=== PATIENT | female | born 1990 | race Caucasian/White ===

== ENCOUNTER → 2018-03-02 17:25 | Outpatient (CLI) | payer OTHER, SELFPAY ==
[2018-03-02 18:12] LABS: Appearance Urine UA CLEAR; Bilirubin Urine UA NEGATIVE (NEGATIVE); Color Urine UA YELLOW; Glucose Urine UA NEGATIVE (Normal); Ketones Urine UA NEGATIVE (NEGATIVE); Leukocyte Esterase Urine UA TRACE (NEGATIVE); Nitrite Urine UA Negative (Negative); Occult Blood Urine UA 2+ (Negative); Protein Urine UA NEGATIVE (Negative); Specific Gravity Urine UA <=1.005 (1.000-1.035); Urobilinogen Urine UA 0.2 E.U./dL (0.2); pH Urine UA 5.5 (4.5-8.0)
[2018-03-02 18:13] LABS: Add Manual Diff / Slide Review NO; Basophils Percent Auto 0.4 % (0-2); Eosinophils Percent Auto 1.3 % (2-4); Hematocrit 37.4 % (36-46); Hemoglobin 12.8 g/dL (12.0-16.0); Lymphocytes Percent Auto 19.4 % (25-40); Mean Corpuscular HGB Conc 34.2 % (30-36); Mean Corpuscular Hemoglobin 31.6 PG (26-34); Mean Corpuscular Volume 92.4 fL (80-100); Monocytes Percent Auto 10.4 % (3-14); Neutrophils Absolute Auto 4900 /uL (3000-5900); Neutrophils Percent Auto 68.5 % (50-75); Platelet Count 291 X10^3/uL (150-400); Red Blood Cell Count 4.05 X10^6/uL (4.0-5.2); White Blood Cell Count 7.2 X10^3/uL (4.5-11.0)
[2018-03-02 18:28] LABS: Bacteria Urine Occasional (0-1); RBC Urine 1-5/HPF (0-5/HPF); Squamous Epithelial Cell Urine 1-5 /HPF; WBC Urine 1-5/HPF (0-5/HPF)
[2018-03-02 19:14] LABS: HIV 1 and 2 Antibody NEGATIVE (NEGATIVE); Hep C Virus Ab w/Reflex Quant NEGATIVE s/c (NEGATIVE); Hepatitis B Surface Antigen NEGATIVE s/c (NEGATIVE); Rubella Antibody IgG 6.5 IU/mL (>15)
[2018-03-04 14:41] LABS: HSV 2 IGG AB < 0.90 index (< 0.90); HSV1IGG < 0.90 index (< 0.90)
[2018-03-09 09:14] LABS: Rapid Plasma Reagin NON REACTIVE
== END ==
PROVIDERS: PCP Physician Assistant; Visit Provider Specialist
DX: Z34.01 Encounter for supervision of normal first pregnancy, first trimester (principal); Z3A.01 Less than 8 weeks gestation of pregnancy
CPT/HCPCS: 36415; 80055; 81003; 81015; 86695; 86696; 86703; 86787; 86803; 86850; 86900; 86901; 87086

== ENCOUNTER → 2018-04-27 10:36 | Outpatient (CLI) | payer OTHER, SELFPAY ==
[2018-05-01 10:20] LABS: AFP, Serum 25.6 ng/mL; Calc Gestational Age 16.4; Cigarette Smoker N; Donated Egg NOT GIVEN; Donor Egg Age NOT GIVEN; Estriol, Free 0.98 ng/mL; Inhibin A, Dimeric 163 pg/mL; Maternal Weight 180 lbs; Number of Fetuses NOT GIVEN; Previous Pregnancy Down Syndro NOT GIVEN; hCG, MoM 1.14; hCG, Serum 32.1 IU/mL
== END ==
PROVIDERS: Visit Provider Specialist
DX: Z3A.16 16 weeks gestation of pregnancy (principal)
CPT/HCPCS: 36415; 82105; 82677; 84702; 86336

== ENCOUNTER → 2018-05-18 15:20 | Outpatient (CLI) | payer OTHER, SELFPAY ==
--- NOTE | 2018-05-18 15:22 | DI.US.S_ITS ---
PROCEDURE: US OB >= 14 WEEKS FETUS INDICATIONS: anatomy survey OUTSIDE/PRIOR DATING DATA: Last menstrual period (LMP): 01/02/18. LMP-based estimated date of delivery (IVETH): 10/09/18. First dating scan (date and location): 05/18/18. Estimated date of delivery (IVETH) from first dating scan: 10/05/18. TECHNIQUE: Real-time scanning was performed of the fetus, with image documentation and biometric measurements. Endovaginal scanning: No COMPARISON: [facility], , OB >= 14 WEEKS FETUS, 04/27/2018, 10:31. FINDINGS: General: A single living intrauterine gestation is present. Presentation: Breech. Placenta: Placental position is anterior, without previa. Amniotic fluid index: 12.8 cm, normal range is 5-24 cm. heart rate: 144 beats per minute. Maternal cervical canal: 3.0 cm long. Normal lower limit is 2.5 cm. biometrics: Biparietal diameter: 20 weeks 2 days Head circumference: 19 weeks 6 days Abdominal circumference: 19 weeks 6 days Femur length: 20 weeks 1 day Estimated gestational age from initial scan: not applicable. Composite gestational age from present scan: 20 weeks Estimated weight and percentile: 325 g; 78 percentile Measurement variability for biometric dating: +/- 7 days from 14 weeks to 15 weeks 6 days gestation, +/- 10 days from 16 weeks to 21 weeks 6 days gestation, +/- 2 weeks from 22 weeks to 27 weeks 6 days gestation, +/- 3 weeks for 28 weeks gestation or later. weight reference: 4500 g or EFW >90/95% is considered macrosomia or large for gestational age. EFW <10% is small for gestational age. EFW 5% or less is considered intra-uterine growth restriction. Anatomic survey: Neuro: Ventricles are non-dilated at less than 10 mm. Cisterna magna is normal at 3-11 mm. Cerebellum is normal in size and morphology. Nuchal skin fold: Normal at less than 6 mm between 14-21 weeks gestational age. Face: Nose and lips normal. Facial profile not well-seen.. Spine: No evidence for spina bifida. Heart: 4-chambered heart is present, with normal ventricular outflow tracts. Left ventricular intracardiac focus. Diaphragm: Diaphragm is intact. Stomach: Left-sided stomach is present. Kidneys: No hydronephrosis. Normal is less than 5 mm in 2nd trimester, less than 7 mm in 3rd trimester. Cord: 3-vessel cord has orthotopic insertion. Bladder: Normal in size. Extremities: All 4 extremities identified. IMPRESSION: 1. Single living IUP with composite gestational age of 20 weeks 0 days. 2. Echogenic intracardiac focus: 1.4-1.8 fold likelihood of Down syndrome. If isolated finding, consider aneuploidy screening with cell-free DNA. If aneuploidy screen is negative, no further evaluation needed. 3. Facial profile not well seen otherwise normal anatomy. Dictated by: Sam MUNIZ Interpreted: Bryce Peralta MD on 05/18/2018 at 17:13 Approved by: Bryce Peralta M.D. on 05/18/2018 at 17:55
== END ==
PROVIDERS: Visit Provider Specialist
DX: Z34.02 Encounter for supervision of normal first pregnancy, second trimester (principal); Z3A.20 20 weeks gestation of pregnancy
CPT/HCPCS: 76811

== ENCOUNTER → 2018-07-06 12:41 | Outpatient (CLI) | payer OTHER, SELFPAY ==
[2018-07-06 14:52] LABS: Hemoglobin 11.2 g/dL (12.0-16.0)
[2018-07-06 15:01] LABS: GTT (PREG) 1 Hour PP 50gm Dose 118 mg/dL (76-139)
== END ==
PROVIDERS: Visit Provider Specialist
DX: Z34.02 Encounter for supervision of normal first pregnancy, second trimester (principal); Z3A.25 25 weeks gestation of pregnancy
CPT/HCPCS: 36415; 82950; 85014; 85018

== ENCOUNTER → 2018-08-13 12:52 | Outpatient (CLI) | payer OTHER, SELFPAY ==
[2018-08-13 13:46] LABS: Add Manual Diff / Slide Review NO; Basophils Absolute Auto 0 /uL (0-100); Basophils Percent Auto 0.1 % (0-2); Eosinophils Absolute Auto 100 /uL (0-450); Eosinophils Percent Auto 0.6 % (2-4); Hematocrit 33.3 % (36-46); Hemoglobin 11.4 g/dL (12.0-16.0); Lymphocytes Absolute Auto 1000 /uL (1100-4500); Lymphocytes Percent Auto 11.9 % (25-40); Mean Corpuscular HGB Conc 34.3 % (30-36); Mean Corpuscular Volume 93.4 fL (80-100); Monocytes Absolute Auto 700 /uL (0-900); Monocytes Percent Auto 8.1 % (3-14); Neutrophils Absolute Auto 6800 /uL (1500-7000); Neutrophils Percent Auto 79.3 % (50-75); Platelet Count 247 X10^3/uL (150-400); Red Blood Cell Count 3.56 X10^6/uL (4.0-5.2); Red Cell Distribution Width 13.4 % (11.6-14.8); White Blood Cell Count 8.6 X10^3/uL (4.5-11.0)
[2018-08-13 16:36] LABS: Alanine Aminotransferase 26 IU/L (9-52); Albumin 3.4 g/dL (3.5-5.0); Albumin Globulin Ratio 1.1 (1.0-2.8); Alkaline Phosphatase 90 U/L (38-126); Aspartate Aminotransferase 18 IU/L (14-36); Bilirubin Total 0.2 mg/dL (0.2-1.3); Bilirubin Unconjugated 0.1 mg/dL (0.0-1.1); HEMOLYSIS < 15 (0-50); Total Protein 6.4 g/dL (6.3-8.2); Uric Acid 3.7 mg/dL (2.5-6.2)
== END ==
PROVIDERS: Visit Provider Specialist
DX: O16.3 Unspecified maternal hypertension, third trimester (principal)
CPT/HCPCS: 36415; 80076; 84550; 85025

== ENCOUNTER → 2018-09-11 14:53 | Outpatient (CLI) | payer OTHER, SELFPAY ==
[2018-09-12 14:47] LABS: Strep Grp B PCR NEG for Grp B Strep
== END ==
PROVIDERS: Visit Provider Specialist
DX: Z34.03 Encounter for supervision of normal first pregnancy, third trimester (principal); Z3A.36 36 weeks gestation of pregnancy
CPT/HCPCS: 87653

== ENCOUNTER 2018-09-26 11:31 | Outpatient (CLI) | payer OTHER, SELFPAY ==
--- NOTE | 2018-09-26 12:48 | PM.OBTRLD ---
Visit Information Visit Information Date of evaluation: 09/26/18 Primary OB Provider: Flory Elias On-call OB Provider: Katina Salvador Reason for Evaluation: Yes non-stress test non-stress test reason: hypertension/pre-eclampsia Comments/Additional reasons for admission: Scheduled NST for chronic hypertension. Patient denies symptoms of pre-eclampsia per nursing. [facility] Medical History Hypertension (Chronic) Surgical History No history of previous surgery (Resolved) Family History (Updated 04/22/17 @ 00:00 by Conversion Provider) Father Age: 64 Hypertension Sister Age: 35 Hypertension Mother No problems noted. Sister No problems noted. Family History Father Age: 64 Hypertension Sister Age: 35 Hypertension Mother No problems noted. Sister No problems noted. Exam Vital Signs (past 8 hours): 164/110 143/100 127/78 Evaluation Evaluation Baseline heart rate: 140 Variability: Moderate (11-25) monitor accelerations: Present monitor decelerations: Absent Category of Tracing: I Diagnosis, Plan/Disposition Final Diagnosis (1) Gestational hypertension: Current Visit: Yes Status: Deleted (2) 38 weeks gestation of : Current Visit: Yes Status: Acute (3) Chronic hypertension affecting : Current Visit: Yes Status: Acute Plan/Disposition Plan: Scheduled NST for chronic hypertension. No symptoms of pre-eclampsia. Initial blood pressure elevated however rechecks improved. Continue metoprolol and follow up in clinic as scheduled.
== END 2018-09-26 12:55 | disposition home or self-care (01) ==
LOC: LABOR 13:06 → OB 09-29 06:54
PROVIDERS: Visit Provider Specialist
DX: O13.9 Gestational [pregnancy-induced] hypertension without significant proteinuria, unspecified trimester (principal); O10.919 Unspecified pre-existing hypertension complicating pregnancy, unspecified trimester; Z3A.38 38 weeks gestation of pregnancy
CPT/HCPCS: 59025; G0378; G0379

== ENCOUNTER 2018-10-01 10:37 | Outpatient (CLI) | payer OTHER, SELFPAY ==
--- NOTE | 2018-10-01 12:34 | PM.OBTRLD ---
Visit Information Visit Information Date of evaluation: 10/01/18 Primary OB Provider: Flory Elias Reason for Evaluation: Yes non-stress test non-stress test reason: hypertension/pre-eclampsia Vital Signs Vital Signs: Blood pressure 138/98, repeat 124/80 on her left side Evaluation Evaluation Baseline heart rate: 150 Variability: Moderate (11-25) monitor accelerations: Present monitor decelerations: Absent Contraction Frequency (minutes): 0 Diagnosis, Plan/Disposition Final Diagnosis (1) Chronic hypertension affecting : Current Visit: No Status: Acute (2) 38 weeks gestation of : Current Visit: No Status: Acute Plan/Disposition Plan: Patient is to call if she has any signs or symptoms of preeclampsia. She is a follow-up appointment in 5 days. OB Disposition: home
== END 2018-10-01 11:32 | disposition home or self-care (01) ==
LOC: LABOR 10:50 → OB 10-02 13:04
PROVIDERS: Visit Provider Specialist
DX: O10.919 Unspecified pre-existing hypertension complicating pregnancy, unspecified trimester (principal); Z3A.38 38 weeks gestation of pregnancy
CPT/HCPCS: 59025; 59050; G0378; G0379

== ENCOUNTER 2018-10-08 08:52 | Outpatient (CLI) | payer OTHER, SELFPAY ==
--- NOTE | 2018-10-08 09:38 | PM.OBTRLD ---
Visit Information Visit Information Date of evaluation: 10/08/18 Primary OB Provider: Flory Elias Reason for Evaluation: Yes non-stress test non-stress test reason: hypertension/pre-eclampsia Vital Signs Vital Signs: Initial blood pressure 133/102 but came down quickly to 127/73. Evaluation Evaluation Baseline heart rate: 130 Variability: Moderate (11-25) monitor accelerations: Present monitor decelerations: Absent Contraction Frequency (minutes): 0 Category of Tracing: I Cervical dilation (cm): 1 Cervical effacement (%): 80 station: -1 Diagnosis, Plan/Disposition Final Diagnosis (1) Chronic hypertension affecting : Current Visit: No Status: Acute (2) 39 weeks gestation of : Current Visit: Yes Status: Acute Plan/Disposition Plan: Reactive nonstress test. Patient has a follow-up appointment and 5 days. Routine precautions reviewed with the patient. NORA was over 8, good movement tone and breathing seen in the office on ultrasound OB Disposition: home
== END 2018-10-08 09:50 | disposition home or self-care (01) ==
LOC: LABOR 09:20 → OB 10-09 10:44
PROVIDERS: Visit Provider Specialist
DX: O10.919 Unspecified pre-existing hypertension complicating pregnancy, unspecified trimester (principal); Z3A.39 39 weeks gestation of pregnancy
CPT/HCPCS: 59025; G0378; G0379

== ENCOUNTER 2018-10-10 06:03 | Inpatient (IN) | payer OTHER, SELFPAY ==
--- NOTE | 2018-10-10 06:07 | PM.OBHP.1 ---
OB HPI Date/Time Date of admission: 10/10/18 Date Patient Seen: 10/10/18 Time Patient Seen: 06:07 History of Present Condition Chief complaint: evaluation of labor : 2 Para: 0 Estimated Date of Delivery: 10/09/18 Estimated Gestational Age (weeks): 40 Narrative: Yeimy Walsh is a 28 year old female admitted in active labor History of Present care: good care, initiated at week # (9), number of visits (14) and pounds weight gain (43) Dating criteria: LMP confirmed by 1st trimester US Ultrasounds: abnormal US findings (intracardiac focus) Abnormal ultrasound findings: Intracardiac focus seen at the [facility] normal cell free DNA Obstetrical complications: none Medical complications: cardiovascular (chronic hypertension) Preadmission Labs Blood type: O (+) positive -: Antibody screen: negative, GBS status: negative, HBsAG: negative, HIV: negative, HSV 1: negative, HSV 2: negative and RPR/VDLR: negative -: Chlamydia screen: not detected and Gonorrhea screen: not detected -: Rubella: not immune and Varicella: immune HCAB: negative PAP: Normal Cell-free DNA: normal 1 hr GTT: 118 Evaluation Evaluation Baseline heart rate: 130 Variability: Moderate (11-25) monitor accelerations: Present monitor decelerations: Absent Contraction Frequency (minutes): 5 Uterine Contraction Intensity: Strong/Firm Category of Tracing: I Cervical dilation (cm): 5 Cervical effacement (%): 100 station: 0 [facility] Home Medications Medication Instructions Recorded Confirmed Type breast pump #1 each 08/07/18 08/07/18 Rx metoprolol succinate ER 50 mg 50 mg PO QDAY #30 tab 09/08/18 Rx tablet,extended release 24 hr Allergies Allergy/AdvReac Type Severity Reaction Status Date / Time No Known Drug Allergies Allergy Verified 09/26/18 13:21 Review of Systems Review of Systems Patient denies rupture membranes. No headache or scotomata. Good movement. All systems reviewed & are unremarkable except as noted in HPI and below Exam Vital Signs (past 8 hours): Initial blood pressure 150/113 repeat 124/78 pulse 101 Narrative Exam Narrative: HEENT exam within normal limits. Lungs are clear to auscultation and percussion. Heart is regular rate and rhythm no S3-S4 or murmurs. Abdomen is gravid. Extremities with out edema nontender. Assessment and Plan Assessment and Plan Assessment and Plan narrative: 40 week gestation in active labor. Patient with chronic hypertension no signs or symptoms of preeclampsia
[2018-10-10 07:54] LABS: Alanine Aminotransferase 22 IU/L (9-52); Albumin 3.1 g/dL (3.5-5.0); Alkaline Phosphatase 186 U/L (38-126); Aspartate Aminotransferase 20 IU/L (14-36); BUN Creatinine Ratio 12.9 (6-22); Bilirubin Total 0.2 mg/dL (0.2-1.3); Blood Urea Nitrogen 9 mg/dL (7-17); Calcium 8.3 mg/dL (8.4-10.2); Carbon Dioxide 21 mmol/L (22-32); Chloride 107 mmol/L (98-107); Estimated Glomerular Filt Rate > 60.0 mL/min (>60); Glucose 85 mg/dL (70-100); HEMOLYSIS < 15 (0-50); Potassium 4.1 mmol/L (3.4-5.1); Sodium 135 mmol/L (137-145); Total Protein 6.1 g/dL (6.3-8.2)
[2018-10-10 08:16] LABS: Add Manual Diff / Slide Review NO; Basophils Absolute Auto 100 /uL (0-100); Basophils Percent Auto 0.7 % (0-2); Eosinophils Absolute Auto 100 /uL (0-450); Eosinophils Percent Auto 1.3 % (2-4); Hematocrit 38.3 % (36-46); Hemoglobin 12.9 g/dL (12.0-16.0); Lymphocytes Absolute Auto 1000 /uL (1100-4500); Lymphocytes Percent Auto 10.4 % (25-40); Mean Corpuscular HGB Conc 33.8 % (30-36); Mean Corpuscular Hemoglobin 31.6 PG (26-34); Mean Corpuscular Volume 93.5 fL (80-100); Monocytes Absolute Auto 600 /uL (0-900); Monocytes Percent Auto 6.3 % (3-14); Neutrophils Absolute Auto 7900 /uL (1500-7000); Neutrophils Percent Auto 81.3 % (50-75); Platelet Count 239 X10^3/uL (150-400); Red Blood Cell Count 4.09 X10^6/uL (4.0-5.2); Red Cell Distribution Width 13.8 % (11.6-14.8); White Blood Cell Count 9.7 X10^3/uL (4.5-11.0)
[2018-10-10] MEDS: OXYTOCIN PREMIX 30 UNIT/500 ML PLAST..BAG IV (11:29)
--- NOTE | 2018-10-10 16:08 | PM.OBPRVD ---
Events: Induced HTN (chronic hypertension) and Meconium Stained Fluid (thin) Delivery date: 10/10/18 Intrapartal events: None Cervical ripening method: none Induction method: none Delivery augmentation: pitocin Delivery monitor: external FHT and external uterine Route of delivery: forceps (outlet) Indication for instrumentation: maternal exhaustion L&D Laceration Description: Periurethral - 1st Degree and Vaginal - 1st Degree Delivery repair: chromic (4-0, 3-0) Estimated blood loss (mL): 250 Anesthesia type: Epidural Narrative: Patient arrived on Labor and delivery in active labor. She received an epidural catheter for pain control. After becoming complete her contractions decreased so she had Pitocin augmentation begun. After close to 3 hours of pushing patient was fatigued and the maternal temperature had increased to 100.4 with some decreased variability, beginnings of late decelerations, and gradual increasing baseline so decision was made to assist delivery with outlet forceps. The Lauf forceps were placed and with 1 contraction the infant's head was delivered. The baby had a non reducible nuchal cord. After delivery of the the cord was released and the placed on maternal abdomen. The decision was then made to place the on the warmer so the cord was clamped, cut, and cord bloods obtained. The infant responded quickly to transfer to the warmer and was returned to maternal abdomen. the placenta delivered spontaneously, intact, with 3 vessels. Patient had no cervical or perineal tears. A right labia minora tear was repaired with 4-0 chromic suture. A first-degree posterior midline vaginal tear was repaired with 3-0 chromic suture. Due to some increased bleeding the patient received IM Pitocin as well as IV Pitocin. Both infant and mother doing well. [place] Baby 1: gender: Female Presentation: vertex position: Left Occiput Transverse Placenta delivery description: Spontaneous cord vessel description: Nuchal Cord score (1 min): 8 score (5 min): 9 Plan for aftercare: Routine post vaginal delivery
[2018-10-10] MEDS: IBUPROFEN 600 MG TABLET PO (18:30)
[2018-10-10 18:36] VITALS: BP 138/88
[2018-10-11 05:34] LABS: Add Manual Diff / Slide Review NO; Basophils Absolute Auto 0 /uL (0-100); Basophils Percent Auto 0.1 % (0-2); Eosinophils Absolute Auto 100 /uL (0-450); Eosinophils Percent Auto 0.9 % (2-4); Hematocrit 33.3 % (36-46); Lymphocytes Absolute Auto 1200 /uL (1100-4500); Lymphocytes Percent Auto 8.7 % (25-40); Mean Corpuscular Hemoglobin 30.9 PG (26-34); Mean Corpuscular Volume 93.8 fL (80-100); Monocytes Absolute Auto 1000 /uL (0-900); Monocytes Percent Auto 7.4 % (3-14); Neutrophils Absolute Auto 11300 /uL (1500-7000); Neutrophils Percent Auto 82.9 % (50-75); Platelet Count 170 X10^3/uL (150-400); Red Blood Cell Count 3.55 X10^6/uL (4.0-5.2); Red Cell Distribution Width 13.9 % (11.6-14.8); White Blood Cell Count 13.6 X10^3/uL (4.5-11.0)
[2018-10-11] MEDS: IBUPROFEN 600 MG TABLET PO (09:13)
[2018-10-11] MEDS: DOCUSATE 250 MG CAPSULE PO (09:13)
--- NOTE | 2018-10-11 12:40 | PM.OBDS.1 ---
Discharge Providers Date of admission: 10/10/18 06:03 Discharge Date: 10/11/18 Consults: 10/10/18 08:07 Consult to Anesthesiology Urgent Comment: Consulting Provider: Anesthesiologist Reason for consultation: epidural Has provider been notified: No 10/10/18 18:34 Consult to Exercise Physiology Professor Routine Comment: Discharge provider: Flory Elias MD Summary Date Patient Seen: 10/11/18 Time Patient Seen: 12:41 Procedures: Epidural catheter, forceps assisted vaginal delivery Hospital Course: Patient arrived on Labor and delivery in active labor. She received an epidural catheter for pain control. She had a forceps assisted vaginal delivery with repair of a first-degree vaginal tear. She Is breast-feeding without difficulty. She is urinating and ambulating well. She denies any signs or symptoms of preeclampsia. She continues to have labile blood pressure. Peripartum Data Infant Delivery Method: Assisted Delivery (Forceps assisted vaginal delivery) Laceration description: Vaginal - 1st Degree Procedures: Epidural catheter, forceps assisted vaginal delivery, repair of first-degree vaginal laceration complications: none [place] 1: Gender: Female Disposition of : home Discharge Diagnosis (1) Chronic hypertension affecting : Status: Acute (2) Vaginal delivery: Status: Acute Time Spent with Patient Total time spent providing and/or coordinating discharge services: Objective Labs Result Diagrams: 10/11/18 05:00 10/10/18 07:35 Labs: Laboratory Results - last 24 hr 10/11/18 05:00 WBC 13.6 H RBC 3.55 L Hgb 11.0 L Hct 33.3 L MCV 93.8 MCH 30.9 MCHC 33.0 RDW 13.9 Plt Count 170 Neut % (Auto) 82.9 H Lymph % (Auto) 8.7 L Hunt % (Auto) 7.4 Eos % (Auto) 0.9 L Baso % (Auto) 0.1 Neut # (Auto) 56029 H Lymph # (Auto) 1200 Hunt # (Auto) 1000 H Eos # (Auto) 100 Baso # (Auto) 0 Exam Vital Signs (past 8 hours): Blood pressure 140/97, pulse of 89, temperature 97.7? Narrative Exam Narrative: Abdomen is soft, nontender. Uterus is firm, U -1, nontender. Mild lochia. Extremities with trace edema and nontender. Normal DTRs. Patient's blood type is O positive and she is rubella nonimmune so she will receive a rubella vaccine prior to discharge. Discharge Plan Discharge Plan Patient Disposition: Home Discharge Med Rec/Prescriptions Prescriptions: New ibuprofen 600 mg Tablet 600 mg PO Q6HR PRN (Reason: Pain, Mild (1-3)) Qty: 30 RF: 0 docusate sodium 250 mg Capsule 250 mg PO DAILY Qty: 30 RF: 0 labetalol 100 mg tablet 100 mg PO BID Qty: 60 RF: 0 Continued breast pump [Pump In Style Advanced] device .ROUTE .MEDSUPPLY Qty: 1 RF: 0 Discontinued metoprolol succinate [Toprol XL] 50 mg tablet extended release 24 hr 50 mg PO QDAY Qty: 30 RF: 3 Follow up/Referrals: Flory Elias MD [Physician] - 1 Month (BP check in 2 days) Provider Discharge Instructions Diet: Regular Activity: Nothing in vagina for 4 weeks Skin/Wound/Dressing Care Report to your healthcare provider any signs of infection, such as:: chills, fever and increased pain Discharge Data Attending Provider: Flory Elias Admit Date/Time: 10/10/18 06:03
[2018-10-11 13:04] VITALS: BP 140/90; PULSE 72
[2018-10-11] MEDS: LABETALOL 100 MG TABLET PO (13:04)
[2018-10-11 16:57] VITALS: BP 140/90; PULSE 72; RESP 18; TEMP 36.3
[2018-10-11] MEDS: MEASLES,MUMPS,RUBELLA VACC/PF 0.5 ML VIAL SUBCUT (17:00)
== END 2018-10-11 17:35 | disposition home or self-care (01) | DRG 806 ==
PROVIDERS: Admitting Provider Specialist; Visit Provider Specialist
DX: O16.4 Unspecified maternal hypertension, complicating childbirth (principal); O75.2 Pyrexia during labor, not elsewhere classified; Z37.0 Single live birth; Z3A.40 40 weeks gestation of pregnancy; O71.82 Other specified trauma to perineum and vulva
CPT/HCPCS: 01967; 36415; 59050; 59400; 80053; 85025; 86850; 86900; 86901; G0379; J2590; J3010

== ENCOUNTER → 2019-12-16 07:01 | Outpatient (CLI) | payer OTHER, SELFPAY ==
[2019-12-16 08:30] LABS: Add Manual Diff / Slide Review NO; Basophils Absolute Auto 0 /uL (0-100); Basophils Percent Auto 0.6 % (0-2); Eosinophils Absolute Auto 100 /uL (0-450); Eosinophils Percent Auto 2.2 % (2-4); Hemoglobin 12.3 g/dL (12.0-16.0); Lymphocytes Absolute Auto 1000 /uL (1100-4500); Lymphocytes Percent Auto 20.8 % (25-40); Mean Corpuscular Hemoglobin 30.8 PG (26-34); Mean Corpuscular Volume 90.6 fL (80-100); Monocytes Absolute Auto 500 /uL (0-900); Monocytes Percent Auto 10.1 % (3-14); Neutrophils Absolute Auto 3200 /uL (1500-7000); Neutrophils Percent Auto 66.3 % (50-75); Platelet Count 270 X10^3/uL (150-400); Red Blood Cell Count 3.98 X10^6/uL (4.0-5.2); White Blood Cell Count 4.8 X10^3/uL (4.5-11.0)
[2019-12-16 09:21] LABS: Alanine Aminotransferase 17 IU/L (<35); Albumin 4.1 g/dL (3.5-5.0); Albumin Globulin Ratio 1.5 (1.0-2.8); Alkaline Phosphatase 72 U/L (38-126); Aspartate Aminotransferase 24 IU/L (14-36); BUN Creatinine Ratio 17.9 (6-22); Bilirubin Total 0.7 mg/dL (0.2-1.3); Blood Urea Nitrogen 15 mg/dL (7-17); Calcium 9.1 mg/dL (8.4-10.2); Carbon Dioxide 25 mmol/L (22-32); Chloride 104 mmol/L (98-107); Cholesterol 175 mg/dL (140-199); Estimated Glomerular Filt Rate > 60.0 mL/min (>60); Globulin 2.8 g/dL (1.7-4.1); Glucose 91 mg/dL (70-100); HDL Cholesterol 54 mg/dL (40-60); HEMOLYSIS < 15 (0-50); LDL Cholesterol Calculated 105 mg/dL (<100); Potassium 4.4 mmol/L (3.4-5.1); Sodium 136 mmol/L (137-145); Total Protein 6.9 g/dL (6.3-8.2); Triglycerides 78 mg/dL (35-150)
[2019-12-16 09:39] LABS: Free T4, Direct Thyroxine 1.21 ng/dL (0.78-2.19)
== END ==
PROVIDERS: PCP Nurse Practitioner; Referring Provider Nurse Practitioner; Visit Provider Nurse Practitioner
DX: Z00.00 Encounter for general adult medical examination without abnormal findings (principal); I10 Essential (primary) hypertension
CPT/HCPCS: 36415; 80053; 80061; 84439; 84443; 84481; 85025

== ENCOUNTER → 2020-12-16 08:31 | Outpatient (CLI) | payer OTHER, SELFPAY ==
[2020-12-16 09:24] LABS: Hemoglobin 12.1 g/dL (12.0-16.0); Mean Corpuscular HGB Conc 33.6 % (30-36); Mean Corpuscular Hemoglobin 30.6 PG (26-34); Mean Corpuscular Volume 91.1 fL (80-100); Platelet Count 283 X10^3/uL (150-400); Red Blood Cell Count 3.96 X10^6/uL (4.0-5.2); Red Cell Distribution Width 12.8 % (11.6-14.8); White Blood Cell Count 3.6 X10^3/uL (4.5-11.0)
[2020-12-16 09:29] LABS: Creatinine Urine Random 217.2 mg/dL
[2020-12-16 09:30] LABS: Alanine Aminotransferase 14 IU/L (<35); Albumin 4.2 g/dL (3.5-5.0); Albumin Globulin Ratio 1.4 (1.0-2.8); Alkaline Phosphatase 59 U/L (38-126); Aspartate Aminotransferase 23 IU/L (14-36); BUN Creatinine Ratio 13.4 (6-22); Bilirubin Total 0.6 mg/dL (0.2-1.3); Blood Urea Nitrogen 11 mg/dL (7-17); Calcium 8.9 mg/dL (8.4-10.2); Carbon Dioxide 26 mmol/L (22-32); Chloride 105 mmol/L (98-107); Cholesterol 187 mg/dL (140-199); Estimated Glomerular Filt Rate > 60.0 mL/min (>60); Globulin 3.1 g/dL (1.7-4.1); Glucose 101 mg/dL (70-100); HDL Cholesterol 59 mg/dL (40-60); HEMOLYSIS < 15 (0-50); LDL Cholesterol Calculated 112 mg/dL (<100); Potassium 4.4 mmol/L (3.4-5.1); Sodium 138 mmol/L (137-145); Total Protein 7.3 g/dL (6.3-8.2); Triglycerides 80 mg/dL (35-150)
[2020-12-16 09:34] LABS: Microalbumin Urine Random < 0.6 mg/dL (0-1.6)
[2020-12-16 09:46] LABS: Free T3, Triiodothyronine Free 3.19 pg/mL (2.77-5.27); Free T4, Direct Thyroxine 1.14 ng/dL (0.78-2.19)
[2020-12-16 09:59] LABS: Thyroid Stimulating Hormone 1.38 uIU/mL (0.47-4.68)
[2020-12-16 11:18] LABS: Neutrophils Absolute Manual 2340 /uL (3000-5900); RBC Morphology Normal Morphology; Total Cells Counted 100
== END ==
PROVIDERS: PCP Nurse Practitioner; Referring Provider Nurse Practitioner; Visit Provider Nurse Practitioner
DX: Z00.00 Encounter for general adult medical examination without abnormal findings (principal); I10 Essential (primary) hypertension
CPT/HCPCS: 36415; 80053; 80061; 82043; 82570; 84439; 84443; 84481; 85025

== ENCOUNTER → 2021-01-23 09:18 | Outpatient (CLI) | payer OTHER, SELFPAY ==
[2021-01-23 12:01] LABS: HCG Quantitative /Beta subunit < 2.4 mIU/mL
== END ==
PROVIDERS: PCP Nurse Practitioner; Referring Provider Nurse Practitioner; Visit Provider Nurse Practitioner
DX: N92.6 Irregular menstruation, unspecified (principal)
CPT/HCPCS: 36415; 84702

== ENCOUNTER → 2021-08-23 09:18 | Outpatient (CLI) | payer OTHER, SELFPAY ==
[2021-08-23 10:27] LABS: Add Manual Diff / Slide Review NO; Basophils Absolute Auto 0 /uL (0-100); Basophils Percent Auto 0.4 % (0-2); Eosinophils Absolute Auto 100 /uL (0-450); Eosinophils Percent Auto 1.3 % (2-4); Hematocrit 35.9 % (36-46); Hemoglobin 12.3 g/dL (12.0-16.0); Lymphocytes Absolute Auto 800 /uL (1100-4500); Lymphocytes Percent Auto 16.6 % (25-40); Mean Corpuscular HGB Conc 34.3 % (30-36); Mean Corpuscular Hemoglobin 30.7 PG (26-34); Mean Corpuscular Volume 89.3 fL (80-100); Monocytes Absolute Auto 500 /uL (0-900); Monocytes Percent Auto 9.9 % (3-14); Neutrophils Absolute Auto 3600 /uL (1500-7000); Neutrophils Percent Auto 71.8 % (50-75); Platelet Count 291 X10^3/uL (150-400); Red Blood Cell Count 4.02 X10^6/uL (4.0-5.2)
[2021-08-23 10:41] LABS: Appearance Urine UA CLEAR; Bilirubin Urine UA NEGATIVE (NEGATIVE); Color Urine UA YELLOW; Glucose Urine UA NEGATIVE (Negative); Ketones Urine UA NEGATIVE (NEGATIVE); Leukocyte Esterase Urine UA TRACE (NEGATIVE); Nitrite Urine UA NEGATIVE (Negative); Occult Blood Urine UA NEGATIVE (Negative); Protein Urine UA NEGATIVE (Negative); Urobilinogen Urine UA 0.2 E.U./dL (0.2)
[2021-08-23 10:49] LABS: pH Urine UA 7.5 (4.5-8.0)
[2021-08-23 10:58] LABS: RBC Urine None Seen (0-5/HPF); WBC Urine None Seen (0-5/HPF)
[2021-08-23 10:59] LABS: Bacteria Urine None Seen; Culture Indicated Urine Cult Not Indicated; Squamous Epithelial Cell Urine 5-10 /HPF (0-5/HPF)
[2021-08-23 16:33] LABS: HIV 1 & 2 Ab/Ag 4th Gen Combo NEGATIVE (NEGATIVE); Hep C Virus Ab w/Reflex Quant NEGATIVE s/c (NEGATIVE); Hepatitis B Surface Antigen NEGATIVE s/c (NEGATIVE); Rubella Antibody IgG 41.9 IU/mL (>15)
[2021-08-24 08:14] LABS: RPR Screen Non Reactive (Non Reactive); Varicella IgG Antibody 489 index (Immune >165)
== END ==
PROVIDERS: PCP Nurse Practitioner; Referring Provider Obstetrics & Gynecology; Visit Provider Obstetrics & Gynecology
DX: Z34.91 Encounter for supervision of normal pregnancy, unspecified, first trimester (principal)
CPT/HCPCS: 36415; 80055; 81003; 81015; 86787; 86803; 86850; 86900; 86901; 87389

== ENCOUNTER → 2021-08-29 10:56 | Outpatient (CLI) | payer OTHER, SELFPAY ==
[2021-08-29 13:04] LABS: HCG Quantitative /Beta subunit 20100 mIU/mL
== END ==
PROVIDERS: PCP Nurse Practitioner; Referring Provider Obstetrics & Gynecology; Visit Provider Obstetrics & Gynecology
DX: O20.9 Hemorrhage in early pregnancy, unspecified (principal)
CPT/HCPCS: 36415; 84702

== ENCOUNTER → 2021-10-02 10:32 | Outpatient (CLI) | payer OTHER, SELFPAY ==
[2021-10-02 11:56] LABS: Alanine Aminotransferase 13 IU/L (<35); Albumin 4.3 g/dL (3.5-5.0); Albumin Globulin Ratio 1.3 (1.0-2.8); Alkaline Phosphatase 63 U/L (38-126); Aspartate Aminotransferase 23 IU/L (14-36); BUN Creatinine Ratio 16.9 (6-22); Bilirubin Total 0.3 mg/dL (0.2-1.3); Blood Urea Nitrogen 12 mg/dL (7-17); Calcium 8.9 mg/dL (8.4-10.2); Carbon Dioxide 25 mmol/L (22-32); Chloride 104 mmol/L (98-107); Estimated Glomerular Filt Rate > 60 mL/min (>60); Globulin 3.3 g/dL (1.7-4.1); Glucose 88 mg/dL (70-100); HEMOLYSIS < 15 (0-50); Lactate Dehydrogenase 340 U/L (313-618); Sodium 137 mmol/L (137-145); Total Protein 7.6 g/dL (6.3-8.2); Uric Acid 3.3 mg/dL (2.5-6.2)
[2021-10-02 12:08] LABS: Hemoglobin A1C% w Est Avg Glu 5.1 % (4.0-6.0)
[2021-10-02 12:18] LABS: Creatinine Urine Random 39.2 mg/dL; Protein (Total) Urine Random 8 mg/dL (0-12)
== END ==
PROVIDERS: PCP Nurse Practitioner; Referring Provider Obstetrics & Gynecology; Visit Provider Obstetrics & Gynecology
DX: Z34.81 Encounter for supervision of other normal pregnancy, first trimester (principal); Z36.0 Encounter for antenatal screening for chromosomal anomalies; Z34.00 Encounter for supervision of normal first pregnancy, unspecified trimester
CPT/HCPCS: 36415; 80053; 82570; 83036; 83615; 84156; 84550

== ENCOUNTER → 2021-12-26 10:37 | Outpatient (CLI) | payer OTHER, SELFPAY ==
--- NOTE | 2021-12-26 10:39 | DI.US.S_ITS ---
PROCEDURE: US OB >= 14 WEEKS FETUS INDICATIONS: Anatomy scan OUTSIDE/PRIOR DATING DATA: Last menstrual period (LMP): Unknown LMP-based estimated date of delivery (IVETH): Unknown First dating scan (date and location): 09/07/2021 Estimated date of delivery (IVETH) from first dating scan: 04/27/2022 The calculations are made using the ultrasound IVETH of 04/27/2022 TECHNIQUE: Real-time scanning was performed of the fetus, with image documentation and biometric measurements. Endovaginal scanning: Not performed. COMPARISON: [facility], , OB <= 14 WEEKS FETUS, 09/21/2021, 16:23. [facility], , US OB >= 14 WEEKS FETUS, 10/08/2018, 8:44. FINDINGS: General: A single living intrauterine gestation is present. Presentation: Cephalic Placenta: Placental position is anterior, without previa. Amniotic fluid index: 15.3 cm, normal range is 5-24 cm. Single deepest vertical pocket is 6.7 cm. heart rate: 157 beats per minute. Maternal cervical canal: 3.1 cm long. Normal lower limit is 2.5 cm. biometrics: Biparietal diameter: 5.7 cm, 23 weeks 3 days Head circumference: 20.9 cm, 23 weeks 0 days Abdominal circumference: 18 cm, 22 weeks 6 days Femur length: 3.9 cm, 22 weeks 4 days Clinically estimated gestational age: 22 weeks 4 days Composite gestational age from present scan: 23 weeks 0 days Estimated weight and percentile: 532 grams, 53rd percentile Anatomic survey: Neuro: Ventricles are non-dilated at less than 10 mm. Cisterna magna is normal at 3-11 mm. Cerebellum is normal in size and morphology. Nuchal skin fold: Normal at less than 6 mm between 14-21 weeks gestational age. Face: Nose and lips, facial profile are normal. Spine: No evidence for spina bifida. Heart: 4-chambered heart is present, with normal ventricular outflow tracts. Diaphragm: Diaphragm is intact. Stomach: Left-sided stomach is present. Kidneys: No hydronephrosis. Normal is less than 5 mm in 2nd trimester, less than 7 mm in 3rd trimester. Cord: 3-vessel cord has orthotopic insertion. Bladder: Normal in size. Extremities: All 4 extremities identified. IMPRESSION: 1. Single live intrauterine with appropriate interval growth. 2. Estimated weight 532 grams, 53rd percentile for gestational age. 3. anatomic survey is within normal limits. We strive to produce accurate, complete, and clear reports of imaging services. To assist us in improving patient care, this report was composed using standard report templates and voice recognition software. Therefore, it may contain abnormal punctuation, insertions and/or omissions. Occasional wrong-word or sound-alike substitutions may occur. Though we review the report and make efforts to correct it, we do recommend that the report be read carefully in proper context to recognize any text inaccuracies. Dictated by: Brody Boston M.D. on 12/26/2021 at 14:05 Approved by: Brody Boston M.D. on 12/26/2021 at 14:12
== END ==
PROVIDERS: PCP Nurse Practitioner; Referring Provider Obstetrics & Gynecology; Visit Provider Obstetrics & Gynecology
DX: Z3A.23 23 weeks gestation of pregnancy; Z34.02 Encounter for supervision of normal first pregnancy, second trimester
CPT/HCPCS: 76811; 76817

== ENCOUNTER → 2022-02-05 16:00 | Outpatient (CLI) | payer OTHER, SELFPAY ==
[2022-02-05 17:55] LABS: Hemoglobin 10.5 g/dL (12.0-16.0)
[2022-02-05 18:10] LABS: GTT (PREG) 1 Hour PP 50gm Dose 173 mg/dL (76-139)
== END ==
PROVIDERS: PCP Nurse Practitioner; Referring Provider Obstetrics & Gynecology; Visit Provider Obstetrics & Gynecology
DX: Z34.82 Encounter for supervision of other normal pregnancy, second trimester (principal); Z3A.26 26 weeks gestation of pregnancy
CPT/HCPCS: 36415; 82950; 85014; 85018

== ENCOUNTER → 2022-02-14 08:41 | Outpatient (CLI) | payer OTHER, SELFPAY ==
[2022-02-14 12:42] LABS: Glucose Tol Interp,Gestational INTERPRETATION
[2022-02-14 12:50] LABS: Glucose Fasting Gestational 91 mg/dL (76-95)
[2022-02-14 12:58] LABS: Glucose 2 Hour Gest 128 mg/dL (76-155)
[2022-02-14 14:31] LABS: Glucose 3 Hour Gest 104 mg/dL (76-140)
[2022-02-14 14:32] LABS: Glucose 1 Hour Gest 158 mg/dL (76-180)
== END ==
PROVIDERS: PCP Nurse Practitioner; Referring Provider Obstetrics & Gynecology; Visit Provider Obstetrics & Gynecology
DX: O24.419 Gestational diabetes mellitus in pregnancy, unspecified control (principal); Z3A.00 Weeks of gestation of pregnancy not specified
CPT/HCPCS: 36415; 82951; 82952

== ENCOUNTER → 2022-03-05 14:23 | Outpatient (CLI) | payer OTHER, SELFPAY ==
--- NOTE | 2022-03-05 14:24 | DI.US.S_ITS ---
PROCEDURE: US OB LIMITED INDICATIONS: growth US OUTSIDE/PRIOR DATING DATA: Last menstrual period (LMP): Not available. First dating scan (date and location): 09/07/2021; referring physician. Estimated date of delivery (IVETH) from first dating scan: 04/27/2022. TECHNIQUE: Real-time scanning was performed of the fetus, with image documentation and biometric measurements. Biophysical profile was also obtained. COMPARISON: [facility], OB >= 14 WEEKS FETUS, 02/05/2022, 15:26. [facility], OB >= 14 WEEKS FETUS, 12/26/2021, 10:50. [facility] OB <= 14 WEEKS FETUS, 09/21/2021, 16:23. [facility], PELVIC COMPLETE, 09/07/2021, 14:58. [facility] PELVIC COMPLETE, 08/31/2021, 14:28. FINDINGS: General: A single living intrauterine gestation is present. Presentation: Cephalic. Placenta: Placental position is anterior , without previa. Amniotic fluid index: 13.5 cm, normal range is 5-24 cm. Single deepest vertical pocket is 6.5 cm. heart rate: 144 beats per minute. Maternal cervical canal: 4 cm cm long. Normal lower limit is 2.5 cm. biometrics: Biparietal diameter: 35 weeks 0 day Head circumference: 35 weeks 4 days Abdominal circumference: 33 weeks 3 days Femur length: 33 weeks 2 days Clinically estimated gestational age: 32 weeks 3 days Composite gestational age from present scan: 34 weeks 2 days Estimated weight and percentile: 2255 g; 79%. Measurement variability for biometric dating: +/- 7 days from 14 weeks to 15 weeks 6 days gestation, +/- 10 days from 16 weeks to 21 weeks 6 days gestation, +/- 2 weeks from 22 weeks to 27 weeks 6 days gestation, +/- 3 weeks for 28 weeks gestation or later. weight reference: 4500 g or EFW >90/95% is considered macrosomia or large for gestational age. EFW <10% is small for gestational age. EFW 5% or less is considered intra-uterine growth restriction.>> IMPRESSION: 1. A single living intrauterine gestation with interval growth within normal limits. 2. The estimated weight is at the 79th percentile. We strive to produce accurate, complete, and clear reports of imaging services. To assist us in improving patient care, this report was composed using standard report templates and voice recognition software. Therefore, it may contain abnormal punctuation, insertions and/or omissions. Occasional wrong-word or sound-alike substitutions may occur. Though we review the report and make efforts to correct it, we do recommend that the report be read carefully in proper context to recognize any text inaccuracies. Dictated by: Gurvinder Griggs M.D. on 03/05/2022 at 16:46 Approved by: Gurvinder Griggs M.D. on 03/05/2022 at 16:50
== END ==
PROVIDERS: PCP Nurse Practitioner; Referring Provider Obstetrics & Gynecology; Visit Provider Obstetrics & Gynecology
DX: O16.3 Unspecified maternal hypertension, third trimester (principal); Z3A.34 34 weeks gestation of pregnancy
CPT/HCPCS: 76815

== ENCOUNTER 2022-03-13 14:17 | Outpatient (CLI) | payer OTHER, SELFPAY ==
--- NOTE | 2022-03-13 17:48 | P.TNLD_ITS ---
Visit Information Visit Information Date of evaluation: 03/13/22 Primary OB Provider: Shona Simpson On-call OB Provider: Shona Simpson Reason for Evaluation: Yes non-stress test Comments/Additional reasons for admission: Patient presented for scheduled nonstress test for chronic hypertension. She is 33 weeks 5 days. She denies any problems. Vital Signs Vital Signs: BP normal. [facility] Medical History 38 weeks gestation of 39 weeks gestation of Breast feeding status of mother Chronic hypertension affecting Hypertension Vaginal delivery (~10/10/18) Surgical History No history of previous surgery Family History Father Age: 67 Hypertension Sister Age: 38 Hypertension Mother No problems noted. Sister No problems noted. Grandfather Hypertension Grandmother Hypertension Social History marital status: number of children: 1 household members: spouse and children lives independently: Yes caregiver/support person: No housing: house pets and animals: No education level: other current occupational exposures/hazards: No special jose angel needs: No travel history: other seatbelt use: always helmet use: Yes water heater temp set < 120 deg: Yes working smoke detector in home: Yes fire extinguisher in home: Yes carbon monox detector in home: Yes firearms in home: Yes do you feel safe at home: Yes Smoking Status: Never smoker alcohol intake: former during the past year weight has: other well-balanced diet: daily or most days daily servings fruits/ve-4 caffeine: Yes eating out: other Evaluation Evaluation Baseline heart rate: 135 Variability: Average (6-10) monitor accelerations: Present Monitor Decelerations: Absent Comments: One small contraction over 40 minutes Diagnosis, Plan/Disposition Plan/Disposition Plan: Reactive NST, reassuring testing Patient proceeded to the office for her scheduled appointment today. OB Disposition: home
== END 2022-03-13 15:05 | disposition home or self-care (01) ==
LOC: LABOR 14:30 → OB 03-14 11:05
PROVIDERS: PCP Nurse Practitioner; Referring Provider Obstetrics & Gynecology; Visit Provider Obstetrics & Gynecology
DX: O10.913 Unspecified pre-existing hypertension complicating pregnancy, third trimester (principal); Z3A.33 33 weeks gestation of pregnancy
CPT/HCPCS: 59025; G0378; G0379

== ENCOUNTER 2022-03-17 12:18 | Outpatient (CLI) | payer OTHER, SELFPAY ==
--- NOTE | 2022-03-17 16:34 | P.TNLD_ITS ---
Visit Information Visit Information Date of evaluation: 03/17/22 Primary OB Provider: Shona Simpson On-call OB Provider: Flory Elias Reason for Evaluation: Yes non-stress test non-stress test reason: hypertension/pre-eclampsia Vital Signs Vital Signs: Blood pressure 123/86, pulse 90, temperature 97.0? pulse ox 99% [facility] Medical History (Updated 03/17/22 @ 16:38 by Flory Elias MD) Breast feeding status of mother Chronic hypertension affecting Hypertension Vaginal delivery (~10/10/18) Surgical History No history of previous surgery Family History Father Age: 67 Hypertension Sister Age: 38 Hypertension Mother No problems noted. Sister No problems noted. Grandfather Hypertension Grandmother Hypertension Social History marital status: number of children: 1 household members: spouse and children lives independently: Yes caregiver/support person: No housing: house pets and animals: No education level: other current occupational exposures/hazards: No special jose angel needs: No travel history: other seatbelt use: always helmet use: Yes water heater temp set < 120 deg: Yes working smoke detector in home: Yes fire extinguisher in home: Yes carbon monox detector in home: Yes firearms in home: Yes do you feel safe at home: Yes Smoking Status: Never smoker alcohol intake: former during the past year weight has: other well-balanced diet: daily or most days daily servings fruits/ve-4 caffeine: Yes eating out: other Review of Systems Review of Systems Narrative: Patient was concerned because she felt lightheaded, shortness of breath, unusual low blood pressure readings at home. Evaluation Evaluation Baseline heart rate: 125 Variability: Moderate (11-25) monitor accelerations: Present Monitor Decelerations: Absent Contraction Frequency (minutes): 0 Category of Tracing: Reactive Status: Category l Diagnosis, Plan/Disposition Final Diagnosis (1) Hypertension complicating in third trimester: Status: Acute (2) Dizziness, nonspecific: Status: Acute (3) 34 weeks gestation of : Status: Acute Plan/Disposition Plan: Patient came in for evaluation for complaints of dizziness, and unusual blood pressures at home. Patient is on labetalol for hypertension. Blood pressure is normal here. NST reactive. O2 sats good and the patient is feeling better. Patient is to push fluids and call for any concerns. OB Disposition: home
== END 2022-03-17 13:56 | disposition home or self-care (01) ==
LOC: LABOR 13:17 → OB 03-21 11:23
PROVIDERS: PCP Nurse Practitioner; Referring Provider Specialist; Visit Provider Specialist
DX: O16.3 Unspecified maternal hypertension, third trimester (principal); O26.893 Other specified pregnancy related conditions, third trimester; R42 Dizziness and giddiness; Z3A.34 34 weeks gestation of pregnancy
CPT/HCPCS: 59025; G0378; G0379

== ENCOUNTER 2022-03-20 15:49 | Outpatient (CLI) | payer OTHER, SELFPAY | END 2022-03-20 16:30 | disposition home or self-care (01) | LOC: OB 03-25 08:52 | PROVIDERS: PCP Nurse Practitioner; Referring Provider Obstetrics & Gynecology; Visit Provider Obstetrics & Gynecology | DX: O10.913 Unspecified pre-existing hypertension complicating pregnancy, third trimester (principal); Z3A.34 34 weeks gestation of pregnancy | CPT/HCPCS: 59025; G0378; G0379 ==

== ENCOUNTER 2022-03-27 15:52 | Outpatient (CLI) | payer OTHER, SELFPAY | END 2022-03-27 16:53 | disposition home or self-care (01) | LOC: OB 04-05 16:39 | PROVIDERS: PCP Nurse Practitioner; Referring Provider Obstetrics & Gynecology; Visit Provider Obstetrics & Gynecology | DX: O10.913 Unspecified pre-existing hypertension complicating pregnancy, third trimester (principal); Z3A.35 35 weeks gestation of pregnancy | CPT/HCPCS: 59025; G0378; G0379 ==

== ENCOUNTER → 2022-04-01 12:54 | Outpatient (CLI) | payer OTHER, SELFPAY ==
[2022-04-01 16:58] LABS: Urine N gonorrhoeae NOT DETECTED
[2022-04-01 17:51] LABS: Urine Chlamydia NOT DETECTED
[2022-04-02 17:32] LABS: Strep Grp B PCR NEG for Grp B Strep
== END ==
PROVIDERS: PCP Nurse Practitioner; Visit Provider Physician Assistant Medical
DX: Z36.89 Encounter for other specified antenatal screening (principal); Z11.3 Encounter for screening for infections with a predominantly sexual mode of transmission; Z3A.36 36 weeks gestation of pregnancy
CPT/HCPCS: 87491; 87591; 87653

== ENCOUNTER 2022-04-01 13:31 | Outpatient (CLI) | payer OTHER, SELFPAY ==
--- NOTE | 2022-04-01 14:06 | PM.OBTRLD ---
Visit Information Visit Information Date of evaluation: 04/01/22 Primary OB Provider: Shona Simpson Reason for Evaluation: Yes non-stress test Comments/Additional reasons for admission: Scheduled nonstress test for chronic hypertension complicating . Patient seen in the office prior to scheduled NST and BP was normal 120/70s. Patient tracks BP at home as well. In the office she denied preeclamptic symptoms. Vital Signs Vital Signs: Initial BP 130/90-96, decreased to 130/76 [facility] Medical History (Updated 04/01/22 @ 14:09 by Shona Simpson MD) Breast feeding status of mother Chronic hypertension affecting Hypertension Vaginal delivery (~10/10/18) Surgical History No history of previous surgery Family History Father Age: 67 Hypertension Sister Age: 38 Hypertension Mother No problems noted. Sister No problems noted. Grandfather Hypertension Grandmother Hypertension Social History marital status: number of children: 1 household members: spouse and children lives independently: Yes caregiver/support person: No housing: house pets and animals: No education level: other current occupational exposures/hazards: No special jose angel needs: No travel history: other seatbelt use: always helmet use: Yes water heater temp set < 120 deg: Yes working smoke detector in home: Yes fire extinguisher in home: Yes carbon monox detector in home: Yes firearms in home: Yes do you feel safe at home: Yes Smoking Status: Never smoker alcohol intake: former during the past year weight has: other well-balanced diet: daily or most days daily servings fruits/ve-4 caffeine: Yes eating out: other Evaluation Evaluation Baseline heart rate: 120 Variability: Moderate (11-25) monitor accelerations: Present Monitor Decelerations: Absent Diagnosis, Plan/Disposition Final Diagnosis (1) Chronic hypertension affecting : Status: Acute Plan/Disposition Plan: Thirty-six week , cHTN NST reactive, reassuring. BP decreased after rest and was normal in the office. Continue with weekly NSTs. She is scheduled for induction on 04/23/2022 @ 39 weeks OB Disposition: home
== END 2022-04-01 14:06 | disposition home or self-care (01) ==
LOC: LABOR 13:57 → OB 04-05 16:45
PROVIDERS: PCP Nurse Practitioner; Referring Provider Obstetrics & Gynecology; Visit Provider Obstetrics & Gynecology
DX: O10.913 Unspecified pre-existing hypertension complicating pregnancy, third trimester (principal); Z3A.36 36 weeks gestation of pregnancy; Z36.89 Encounter for other specified antenatal screening; Z11.3 Encounter for screening for infections with a predominantly sexual mode of transmission
CPT/HCPCS: 59025; 87491; 87591; 87653; G0378; G0379

== ENCOUNTER → 2022-04-03 15:41 | Outpatient (CLI) | payer OTHER, SELFPAY ==
--- NOTE | 2022-04-03 15:41 | DI.US.S_ITS ---
PROCEDURE: US OB FOLLOW UP INDICATIONS: PIH; BPP, EFW OUTSIDE/PRIOR DATING DATA: Last menstrual period (LMP): Unknown LMP-based estimated date of delivery (IVETH): Unknown First dating scan (date and location): 09/07/2021 Estimated date of delivery (IVETH) from first dating scan: 04/27/2022 The calculations are made using the ultrasound IVETH of 12/25/2021 TECHNIQUE: Real-time scanning was performed of the fetus, with image documentation and biometric measurements. Endovaginal scanning: Upper for COMPARISON: None. FINDINGS: General: A single living intrauterine gestation is present. Presentation: Vertex Placenta: Placental position is anterior, without previa. Amniotic fluid index: 14.1 cm, normal range is 5-24 cm. Single deepest vertical pocket is 4.6 cm. heart rate: 124 beats per minute. Maternal cervical canal: Not well visualized. biometrics: Biparietal diameter: 9.2 cm, 37 weeks 1 day Head circumference: 33.3 cm, 38 weeks 0 days Abdominal circumference: 32.8 cm, 36 weeks 5 days Femur length: 7.1 cm, 36 weeks 3 days Clinically estimated gestational age: 36 weeks 4 days Composite gestational age from present scan: 37 weeks 1 day Estimated weight and percentile: 3045 g, 61st percentile for gestational age Biophysical profile: Tone: 2 Movement: 2 Respiration: 2 Largest pocket: 2 Other: Not applicable. IMPRESSION: 1. Single live intrauterine with appropriate interval growth. 2. Estimated weight is 3045 g, 61st percentile for gestational age. 3. Amniotic fluid index is normal at 14.1 cm. 4. Biophysical profile score is 8 of 8. We strive to produce accurate, complete, and clear reports of imaging services. To assist us in improving patient care, this report was composed using standard report templates and voice recognition software. Therefore, it may contain abnormal punctuation, insertions and/or omissions. Occasional wrong-word or sound-alike substitutions may occur. Though we review the report and make efforts to correct it, we do recommend that the report be read carefully in proper context to recognize any text inaccuracies. Approved by: Brody Boston M.D. on 04/03/2022 at 16:59
== END ==
PROVIDERS: PCP Nurse Practitioner; Referring Provider Physician Assistant Medical; Visit Provider Physician Assistant Medical
DX: O16.3 Unspecified maternal hypertension, third trimester (principal); Z3A.37 37 weeks gestation of pregnancy
CPT/HCPCS: 76816; 76819

== ENCOUNTER 2022-04-08 08:23 | Outpatient (CLI) | payer OTHER, SELFPAY | END 2022-04-08 09:20 | disposition home or self-care (01) | LOC: LABOR 09:12 → OB 04-09 08:01 | PROVIDERS: PCP Nurse Practitioner; Referring Provider Obstetrics & Gynecology; Visit Provider Obstetrics & Gynecology | DX: O10.913 Unspecified pre-existing hypertension complicating pregnancy, third trimester (principal); Z3A.37 37 weeks gestation of pregnancy | CPT/HCPCS: 59025; G0378; G0379 ==

== ENCOUNTER 2022-04-17 16:21 | Outpatient (CLI) | payer OTHER, SELFPAY | END 2022-04-17 17:14 | disposition home or self-care (01) | LOC: OB 04-22 07:58 | PROVIDERS: PCP Nurse Practitioner; Referring Provider Obstetrics & Gynecology; Visit Provider Obstetrics & Gynecology | DX: O47.1 False labor at or after 37 completed weeks of gestation (principal); Z3A.38 38 weeks gestation of pregnancy | CPT/HCPCS: 59025; G0378; G0379 ==

== ENCOUNTER 2022-04-18 12:44 | Inpatient (IN) | payer OTHER, SELFPAY ==
[2022-04-18 14:53] LABS: Add Manual Diff / Slide Review NO; Basophils Absolute Auto 0 /uL (0-100); Basophils Percent Auto 0.4 % (0-2); Eosinophils Absolute Auto 100 /uL (0-450); Eosinophils Percent Auto 0.9 % (2-4); Hematocrit 35.3 % (36-46); Hemoglobin 11.8 g/dL (12.0-16.0); Lymphocytes Absolute Auto 1300 /uL (1100-4500); Lymphocytes Percent Auto 13.6 % (25-40); Mean Corpuscular HGB Conc 33.5 % (30-36); Mean Corpuscular Volume 92.6 fL (80-100); Monocytes Absolute Auto 500 /uL (0-900); Monocytes Percent Auto 5.4 % (3-14); Neutrophils Absolute Auto 7400 /uL (1500-7000); Neutrophils Percent Auto 79.7 % (50-75); Platelet Count 294 X10^3/uL (150-400); Red Blood Cell Count 3.81 X10^6/uL (4.0-5.2); Red Cell Distribution Width 14.1 % (11.6-14.8); White Blood Cell Count 9.3 X10^3/uL (4.5-11.0)
[2022-04-18 15:20] LABS: COVID19 -Nasal RAPID Negative (Negative)
[2022-04-18 15:24] LABS: Alanine Aminotransferase 14 IU/L (<35); Albumin 3.8 g/dL (3.5-5.0); Alkaline Phosphatase 155 U/L (38-126); Aspartate Aminotransferase 22 IU/L (14-36); Bilirubin Total 0.3 mg/dL (0.2-1.3); Blood Urea Nitrogen 12 mg/dL (7-17); Calcium 9.2 mg/dL (8.4-10.2); Carbon Dioxide 20 mmol/L (22-32); Chloride 105 mmol/L (98-107); Estimated Glomerular Filt Rate > 60 mL/min (>60); Globulin 3.7 g/dL (1.7-4.1); Glucose 107 mg/dL (70-100); HEMOLYSIS < 15 (0-50); Potassium 3.9 mmol/L (3.4-5.1); Sodium 132 mmol/L (137-145); Total Protein 7.5 g/dL (6.3-8.2)
--- NOTE | 2022-04-18 17:00 | PM.OBHP.IH.1 ---
OB HPI Date/Time Date of admission: 04/18/22 Date Patient Seen: 04/18/22 Time Patient Seen: 01:35 History of Present Condition Chief complaint: Labor IVETH Calculator Estimated Delivery Date Method Current WG Current Estimate 04/26/22 LMP (Certain) 39w 0d Other Estimates 04/28/22 Ultrasound #1 38w 5d Estimated Gestational Age (weeks): 38 Narrative: 32 yo presents @ 38wk6d EGA with uncomfortable contractions. Contractions are occurring every few minutes and have become mildly uncomfortable. She thus presented for evaluation. Denies leakage of fluid or vaginal bleeding. Feeling good movement. complicated by chronic hypertension, controlled through her on labetalol. She had testing with nonstress test had growth ultrasounds which were normal. Induction of labor was scheduled in a few days at 39 weeks due to chronic hypertension, but appears to be in early labor now. BP mildly elevated on presentation. She is uncomfortable. Seen in clinic yesterday and BP was normal and she reports normal blood pressure at home prior to the uncomfortable contractions. Denies headache, scotomata, nausea or upper abdominal pain care: good care Dating criteria OB: LMP confirmed by 1st trimester US Ultrasounds: normal 1st trimester US and normal mid trimester US Obstetrical complications: none Medical complications OB: other (Chronic hypertension) Preadmission Labs Last OB Lab Results: Blood Type O Positive 04/18/22 14:25 Antibody Screen Negative 04/18/22 14:25 Hematocrit 35.3 % (36-46) L 04/18/22 14:25 Hemoglobin 11.8 g/dL (12.0-16.0) L 04/18/22 14:25 Hepatitis B Surface Antigen Negative s/c (NEGATIVE) 08/23/21 09:47 Hepatitis C Antibody Negative s/c (NEGATIVE) 08/23/21 09:47 Rubella Antibody 41.9 IU/mL (>15) 08/23/21 09:47 Varicella-Zoster IgG Antibody 489 index (Immune >165) 08/23/21 09:47 Glucose 1 Hour 173 mg/dL (76-139) H 02/05/22 17:28 Group B Streptococcus (PCR) Neg for grp b strep 04/01/22 12:54 Glucose Tolerance Testing: Fasting (91), 1 hr, 2 hr (128) and 3 hr -: Chlamydia screen: negative and Gonorrhea screen: negative -: PAP smear: Normal (12/2019) Genetic Screens: Cell-free DNA: Normal Prior (ies) Past Pregnancies Del. Date GA/Weeks Labor Lgth Wt Sex Route Outcome Anesthesia Place Delv Breastfeed Preg Comp Name 03/02/17 6 spontaneous 10/10/18 40 7 lb 15.3 oz Female vaginal forceps live - full term epidural IH 9 [place]ia Delivery Date: 03/02/17 Last Updated by: Emerita Sabillon R.N. No D&C required Evaluation Evaluation Baseline heart rate: 145 Variability: Moderate (11-25) monitor accelerations: Present Monitor Decelerations: Absent Contraction Frequency (minutes): 4 Uterine Contraction Intensity: Mild Category of Tracing: Reactive Status: Category l Dilation (cm): 2 Effacement (%): 80 PFSH Medical History (Updated 04/01/22 @ 14:09 by Shona Simpson MD) Breast feeding status of mother Chronic hypertension affecting Hypertension Vaginal delivery (~10/10/18) Surgical History No history of previous surgery Family History Father Age: 67 Hypertension Sister Age: 38 Hypertension Mother No problems noted. Sister No problems noted. Grandfather Hypertension Grandmother Hypertension Social History marital status: number of children: 1 household members: spouse and children lives independently: Yes caregiver/support person: No housing: house pets and animals: No education level: other current occupational exposures/hazards: No special jose angel needs: No travel history: other seatbelt use: always helmet use: Yes water heater temp set < 120 deg: Yes working smoke detector in home: Yes fire extinguisher in home: Yes carbon monox detector in home: Yes firearms in home: Yes do you feel safe at home: Yes Smoking Status: Never smoker alcohol intake: former during the past year weight has: other well-balanced diet: daily or most days daily servings fruits/ve-4 caffeine: Yes eating out: other Meds Home Medications and Allergies Home Medications Medication Instructions Recorded Confirmed Type prenat.vits,génesis,gar-aynn-fwffl 1 tab PO DAILY 09/20/21 04/18/22 History labetalol 200 mg tablet See Rx Instructions .Route 12/05/21 04/18/22 Rx .COMPLEX #180 tabs aspirin 81 mg capsule 81 mg DAILY 04/18/22 04/18/22 History double electric breast pump 04/18/22 04/18/22 History Allergies Allergy/AdvReac Type Severity Reaction Status Date / Time No Known Drug Allergies Allergy Verified 04/18/22 20:57 OB Exam Narrative Exam Narrative: Vital signs Temp 96F BP 139/100 Pulse 92 General: Well-appearing female in no acute distress Pulmonary: Normal respiratory effort CV: Normal heart rate Abdomen: Gravid, nontender. No right upper quadrant or epigastric tenderness Extremities: No edema DTRs: 2+ patellar reflex, no clonus Cervical exam 2 cm/80/ Objective Labs Result Diagrams: 04/18/22 14:25 04/18/22 14:25 Labs: Laboratory Results - last 24 hr 04/18/22 04/18/22 04/18/22 14:25 14:25 14:25 WBC 9.3 RBC 3.81 L Hgb 11.8 L Hct 35.3 L MCV 92.6 MCH 31.0 MCHC 33.5 RDW 14.1 Plt Count 294 Neut % (Auto) 79.7 H Lymph % (Auto) 13.6 L [place] % (Auto) 5.4 Eos % (Auto) 0.9 L Baso % (Auto) 0.4 Neut # (Auto) 7400 H Lymph # (Auto) 1300 [place] # (Auto) 500 Eos # (Auto) 100 Baso # (Auto) 0 Sodium Potassium Chloride Carbon Dioxide BUN Creatinine Estimated GFR BUN/Creatinine Ratio Glucose Calcium Total Bilirubin AST ALT Alkaline Phosphatase Total Protein Albumin Globulin Albumin/Globulin Ratio SARS-CoV-2 (PCR) Negative Blood Type O Positive Antibody Screen Negative 04/18/22 14:25 WBC RBC Hgb Hct MCV MCH MCHC RDW Plt Count Neut % (Auto) Lymph % (Auto) [place] % (Auto) Eos % (Auto) Baso % (Auto) Neut # (Auto) Lymph # (Auto) [place] # (Auto) Eos # (Auto) Baso # (Auto) Sodium 132 L Potassium 3.9 Chloride 105 Carbon Dioxide 20 L BUN 12 Creatinine 0.60 Estimated GFR > 60 BUN/Creatinine Ratio 20.0 Glucose 107 H Calcium 9.2 Total Bilirubin 0.3 AST 22 ALT 14 Alkaline Phosphatase 155 H Total Protein 7.5 Albumin 3.8 Globulin 3.7 Albumin/Globulin Ratio 1.0 SARS-CoV-2 (PCR) Blood Type Antibody Screen Assessment and Plan Assessment and Plan Assessment and Plan narrative: 32-year-old female with 38 week 6 day , in early labor. Mildly uncomfortable contractions and cervical change from exam yesterday.. GBS screen negative complicated by chronic hypertension with blood pressures with excellent control on labetalol. On admission mild elevation with patient uncomfortable, then BP's improved -admit and observation of labor. Recheck cervix in a few hours -routine CBC, type and screen and in addition preeclamptic labs sent due to mild elevated BP and returned as normal. Urine protein creatinine not yet sent -she desires epidural when she is more uncomfortable
[2022-04-18] MEDS: LACTATED RINGERS 1,000 ML 100 ML IV ×2 (18:30→21:29)
[2022-04-18] MEDS: FENT 2MCG/ML BUPIV 0.125% EPI 200 MCG/100 ML PLAST..BAG 8 MCG EPIDURAL (19:16)
--- NOTE | 2022-04-18 21:02 | PM.OBPNLAB ---
Date/Time Date Patient Seen: 04/18/22 Time Patient Seen: 21:02 Pain Control Pain control: epidural Comments: She has progressed in labor. Cervical exam at 1650 was 5 cm/ 90%. She became more uncomfortable and received an epidural. She is comfortable with the epidural now. She did feel leakage of fluid soon after sitting for the epidural, SROM light meconium fluid noted. Pelvic Exam Dilation (cm): 8 Effacement (%): 90 station: -1 Amniotic membrane status: Ruptured (2030, light meconium fluid) Contractions Contraction frequency (min): 4 Contraction pattern: Regular Contraction intensity: Strong/Firm Status status: Category ll (overall reassuring) Heart Rate Baseline: 125 Monitor Accelerations: Present Monitor Decelerations: Episodic (occasional, non repetitive) Monitor Variability: Moderate Assessment and Plan Assessment: active labor Plan: continuous present management
[2022-04-18 21:25] VITALS: BP 124/81; PULSE 71
[2022-04-18] MEDS: LABETALOL 100 MG TABLET 200 MG PO (21:25)
[2022-04-18 21:47] VITALS: BP 118/70; PULSE 82
--- NOTE | 2022-04-18 23:34 | PM.OBPRVD ---
Labor & Delivery Delivery date: 04/18/22 Intrapartal Events: None Cervical ripening method: none Induction method: none Delivery monitor: external FHT and external uterine Route of delivery: L&D Laceration Description: Perineal - 2nd Degree (small) Delivery repair: chromic Quantitative Blood Loss: 700 Anesthesia Type: Epidural Complications: PP hemorrhage with delivery of the placenta, controlled immediately with uterine massage, and routine IV Pitocin started. Bleeding then remained minimal. QBL 700 ml Narrative: She progressed to completely dilated. She began pushing, pushed approximately 10 minutes and had a spontaneous vaginal delivery over an intact perineum from the OA position. A loose nuchal cord x 1 was present and reduced. Anterior followed by posterior shoulder were delivered without difficulty with the patient pushing, followed by the remainder of the body. A baby boy was delivered. The baby cried spontaneously, appeared vigorous and was placed on the maternal abdomen. After a few minutes, cord was clamped and then cut by the father. Placenta delivered spontaneously approximately 20 minutes later. She had large gush of blood and large clots immediately followed spontaneous delivery of the placenta. The iterus immediately contracted down with uterine massage and bleeding ceased. On vaginal examination a few clots were noted in the lower uterine segment and removed. Uterus was felt to be jonathan down well after the massage. Routine IV Pitocin given uterus continued to remain contracted down well and bleeding remained minimal throughout the repair On inspection she had a very small second-degree perineal laceration which was repaired in the usual fashion with #3 chromic She did well and was left to recover in good condition. Weight of the baby is pending. Baby 1: gender: Male Presentation: vertex Position: Left Occiput Anterior Placenta delivery description: Spontaneous and Normal Configuration Cord Vessel Description: 3 Vessels, Nuchal Cord and Loose score (1 min): 8 score (5 min): 9 weight: 7 lb 10 oz Plan for aftercare: Routine care
[2022-04-19 01:48] LABS: Creatinine Urine Random 56.8 mg/dL; Protein (Total) Urine Random 8 mg/dL (0-12); Protein Creatinine Ratio Urine 0.14 GRAM/24H
[2022-04-19 08:53] LABS: Add Manual Diff / Slide Review NO; Basophils Absolute Auto 0 /uL (0-100); Basophils Percent Auto 0.1 % (0-2); Eosinophils Absolute Auto 100 /uL (0-450); Eosinophils Percent Auto 0.4 % (2-4); Hematocrit 28.1 % (36-46); Hemoglobin 9.4 g/dL (12.0-16.0); Lymphocytes Absolute Auto 1300 /uL (1100-4500); Lymphocytes Percent Auto 9.3 % (25-40); Mean Corpuscular HGB Conc 33.6 % (30-36); Mean Corpuscular Volume 92.4 fL (80-100); Monocytes Absolute Auto 900 /uL (0-900); Monocytes Percent Auto 6.9 % (3-14); Neutrophils Absolute Auto 11300 /uL (1500-7000); Neutrophils Percent Auto 83.3 % (50-75); Platelet Count 254 X10^3/uL (150-400); Red Blood Cell Count 3.04 X10^6/uL (4.0-5.2); Red Cell Distribution Width 13.7 % (11.6-14.8); White Blood Cell Count 13.6 X10^3/uL (4.5-11.0)
[2022-04-19] MEDS: DOCUSATE 100 MG CAPSULE PO (09:20)
--- NOTE | 2022-04-19 13:06 | P.DS_ITS ---
History of Present Illness History of Present Illness Date Patient Seen: 04/19/22 Time Patient Seen: 12:30 Chief complaint: Labor & Delivery Narrative: 32 yo presents @ 38wk6d gestation in early labor. She had no rupture membranes. Her complicated by chronic hypertension, controlled through her on labetalol.? She had testing with nonstress test and growth ultrasounds which were normal;with planned induction of labor was sche duled 39 weeks. She presents now in early labor. Discharge Providers Provider Date of admission: 04/18/22 12:44 Discharge Date: 04/19/22 Primary care physician: JANNETH Lino Consults: 04/19/22 23:37 Consult to Outpatient Psychiatrist Routine Comment: Discharge provider: Shona Simpson MD Summary Hospital Course Hospital Course: Patient presented in early labor. Her BP was mildly elevated on presentation.? She was uncomfortable.? In clinic yesterday BP was normal and she reports normal blood pressure at home prior to the uncomfortable contractions. She had no preeclamptic symptoms. Preeclamptic labs were ordered and were normal. Urinary protein/creatinine ratio was never sent. However her BP did improve to normal until prior to the epidural when she had mild elevations again. BP then returned to normal after the epidural. She progressed in labor, had spontaneous rupture membranes for light meconium fluid after the epidural. She continued to progress to completely dilated. She had a short 2nd stage, pushing for less than 10 minutes and delivered a viable male with Apgars of 8 and 9. After delivery of the placenta she did have an immediate hemorrhage which became immediately controlled with uterine massage and IV Pitocin. Her bleeding then remained minimal throughout remainder of her repair of a small perineal laceratin and now through course. Her 1st time up to the bathroom, she was symptomatic with a vasovagal reflex, briefly passing out. She was helped back to the bed, IV fluid bolus given. She then slept the night without problems, remains symptomatic. Today she reports that she is feeling well. She is not using any ibuprofen or Tylenol. She has been up to the bathroom without a problem, ambulating without difficulty. She denies shortness of breath, no lightheadedness.. Her lochia has remained minimal. Her hemoglobin decreased from 11.89.4, but she is asymptomatic. She will be discharged home on iron for 1 month and precautions given. She is voiding without problems. The baby is well. She d esires discharge to home today, and will be discharge if baby's labs returned as normal. Baby is doing well in otherwise ready for discharge. Status at Discharge Cognitive/behavioral status at discharge: oriented and at baseline, oriented Functional status at discharge: independent ambulation Time Spent with Patient Time spent: Less than 30 minutes Exam Vital Signs (past 8 hours): Temp 98.2 F, pulse 92, Respiratory rate 16. BP 117/82 Narrative Exam Narrative: General: ?Well-appearing female Abdomen: ?Soft, nontender, nondistended. ?Fundus U-1, firm, nontender Extremities: No pedal edema Objective Labs Result Diagrams: 04/19/22 08:06 04/18/22 14:25 Labs: Laboratory Results - last 24 hr 04/18/22 04/18/22 04/18/22 14:25 14:25 14:25 WBC 9.3 RBC 3.81 L Hgb 11.8 L Hct 35.3 L MCV 92.6 MCH 31.0 MCHC 33.5 RDW 14.1 Plt Count 294 Neut % (Auto) 79.7 H Lymph % (Auto) 13.6 L [place] % (Auto) 5.4 Eos % (Auto) 0.9 L Baso % (Auto) 0.4 Neut # (Auto) 7400 H Lymph # (Auto) 1300 [place] # (Auto) 500 Eos # (Auto) 100 Baso # (Auto) 0 Sodium Potassium Chloride Carbon Dioxide BUN Creatinine Estimated GFR BUN/Creatinine Ratio Glucose Calcium Total Bilirubin AST ALT Alkaline Phosphatase Total Protein Albumin Globulin Albumin/Globulin Ratio U Random Total Protein Urine Creatinine Protein/Creatinin Ratio SARS-CoV-2 (PCR) Negative Blood Type O Positive Antibody Screen Negative 04/18/22 04/18/22 04/19/22 14:25 15:05 08:06 WBC 13.6 H RBC 3.04 L Hgb 9.4 L Hct 28.1 L MCV 92.4 MCH 31.0 MCHC 33.6 RDW 13.7 Plt Count 254 Neut % (Auto) 83.3 H Lymph % (Auto) 9.3 L [place] % (Auto) 6.9 Eos % (Auto) 0.4 L Baso % (Auto) 0.1 Neut # (Auto) 90223 H Lymph # (Auto) 1300 [place] # (Auto) 900 Eos # (Auto) 100 Baso # (Auto) 0 Sodium 132 L Potassium 3.9 Chloride 105 Carbon Dioxide 20 L BUN 12 Creatinine 0.60 Estimated GFR > 60 BUN/Creatinine Ratio 20.0 Glucose 107 H Calcium 9.2 Total Bilirubin 0.3 AST 22 ALT 14 Alkaline Phosphatase 155 H Total Protein 7.5 Albumin 3.8 Globulin 3.7 Albumin/Globulin Ratio 1.0 U Random Total Protein 8 Urine Creatinine 56.8 Protein/Creatinin Ratio 0.14 SARS-CoV-2 (PCR) Blood Type Antibody Screen [facility] Medical History (Updated 04/01/22 @ 14:09 by Shona Simpson MD) Breast feeding status of mother Chronic hypertension affecting Hypertension Vaginal delivery (~10/10/18) Surgical History No history of previous surgery Family History Father Age: 67 Hypertension Sister Age: 38 Hypertension Mother No problems noted. Sister No problems noted. Grandfather Hypertension Grandmother Hypertension Social History marital status: number of children: 1 household members: spouse and children lives independently: Yes caregiver/support person: No housing: house pets and animals: No education level: other current occupational exposures/hazards: No special jose angel needs: No travel history: other seatbelt use: always helmet use: Yes water heater temp set < 120 deg: Yes working smoke detector in home: Yes fire extinguisher in home: Yes carbon monox detector in home: Yes firearms in home: Yes do you feel safe at home: Yes Smoking Status: Never smoker alcohol intake: former during the past year weight has: other well-balanced diet: daily or most days daily servings fruits/ve-4 caffeine: Yes eating out: other Discharge Plan Discharge Plan Patient Disposition: Home Provider Discharge Comment: Day 1 status post spontaneous vaginal delivery Discharge orders & Medications Prescriptions: New ibuprofen 600 mg Tablet 600 mg PO Q6HR PRN (Reason: Pain, Mild (1-3)) Qty: 30 0RF ferrous sulfate 325 mg (65 mg iron) tablet 325 mg PO DAILY Qty: 30 0RF Continued labetalol 200 mg tablet See Rx Instructions .ROUTE .COMPLEX Qty: 180 3RF Dose Instruction: take 1 tablet by mouth twice a day Rx Instructions: take 1 tablet by mouth twice a day prenat.vits,génesis,[id number] Tablet 1 tab PO DAILY double electric breast pump 1 unit Rx Instructions: With supplies Discontinued aspirin 81 mg Capsule 81 mg DAILY Follow up/Referrals: Darling Donovan ARNP [Primary Care Provider] - Shona Simpson MD [Physician] - 6 Weeks Discharge Health Status Multidrug resistant organism: No MDRO Diet/Activity/Treatments Diet: Regular Activity: Nothing in the vagina for 6 weeks, no tampons and no intercourse Skin/Wound/Dressing Care Report to your healthcare provider any signs of infection, such as:: chills, fever and increased pain Visit Report/Discharge Packet Instructions: DI for Labor and Delivery, Vaginal Discharge Data Primary Care Provider: Darling Donovan
[2022-04-19] MEDS: IBUPROFEN 600 MG TABLET PO (14:51)
[2022-04-19] MEDS: ACETAMINOPHEN 325 MG TABLET 650 MG PO (14:51)
[2022-04-19 17:21] VITALS: BP 115/80; PULSE 95; RESP 16; TEMP 36.8
== END 2022-04-19 18:15 | disposition home or self-care (01) | DRG 806 ==
PROVIDERS: Admitting Provider Obstetrics & Gynecology; PCP Nurse Practitioner; Referring Provider Obstetrics & Gynecology; Visit Provider Obstetrics & Gynecology
DX: O10.02 Pre-existing essential hypertension complicating childbirth (principal); D62 Acute posthemorrhagic anemia; Z37.0 Single live birth; O70.1 Second degree perineal laceration during delivery; Z3A.39 39 weeks gestation of pregnancy; O69.81X0 Labor and delivery complicated by cord around neck, without compression, not applicable or unspecified; Z20.822 Contact with and (suspected) exposure to COVID-19; O90.81 Anemia of the puerperium
CPT/HCPCS: 36415; 59050; 59400; 80053; 82570; 84156; 85025; 86850; 86900; 86901; 87635; C9803; G0379

== ENCOUNTER → 2023-01-24 08:06 | Outpatient (CLI) | payer OTHER, SELFPAY ==
[2023-01-24 09:08] LABS: Add Manual Diff / Slide Review NO; Basophils Absolute Auto 0 /uL (0-100); Basophils Percent Auto 0.7 % (0-2); Eosinophils Absolute Auto 100 /uL (0-450); Eosinophils Percent Auto 2.5 % (2-4); Hematocrit 34.9 % (36-46); Hemoglobin 11.9 g/dL (12.0-16.0); Lymphocytes Absolute Auto 1100 /uL (1100-4500); Lymphocytes Percent Auto 26.3 % (25-40); Mean Corpuscular Hemoglobin 30.2 PG (26-34); Mean Corpuscular Volume 88.9 fL (80-100); Monocytes Absolute Auto 400 /uL (0-900); Monocytes Percent Auto 10.2 % (3-14); Neutrophils Absolute Auto 2400 /uL (1500-7000); Neutrophils Percent Auto 60.3 % (50-75); Platelet Count 305 X10^3/uL (150-400); Red Blood Cell Count 3.93 X10^6/uL (4.0-5.2); White Blood Cell Count 4.1 X10^3/uL (4.5-11.0)
[2023-01-24 09:47] LABS: Alanine Aminotransferase 14 IU/L (<35); Albumin 4.2 g/dL (3.5-5.0); Albumin Globulin Ratio 1.4 (1.0-2.8); Alkaline Phosphatase 76 U/L (38-126); Aspartate Aminotransferase 20 IU/L (14-36); BUN Creatinine Ratio 18.8 (6-22); Bilirubin Total 0.5 mg/dL (0.2-1.3); Blood Urea Nitrogen 15 mg/dL (7-17); Calcium 8.8 mg/dL (8.4-10.2); Carbon Dioxide 25 mmol/L (22-32); Chloride 102 mmol/L (98-107); Cholesterol 208 mg/dL (140-199); Estimated Glomerular Filt Rate > 60 mL/min (>60); Globulin 3.1 g/dL (1.7-4.1); Glucose 91 mg/dL (70-100); HDL Cholesterol 72 mg/dL (40-60); HEMOLYSIS < 15 (0-50); LDL Cholesterol Calculated 124 mg/dL (<100); Potassium 4.4 mmol/L (3.4-5.1); Sodium 136 mmol/L (137-145); Total Protein 7.3 g/dL (6.3-8.2); Triglycerides 61 mg/dL (35-150)
[2023-01-24 10:06] LABS: Creatinine Urine Random 214.9 mg/dL
[2023-01-24 10:10] LABS: Microalbumi Creatinin Ratio Ur 3.2 ug/mg CR (<30); Microalbumin Urine Random 0.7 mg/dL (0-1.6)
== END ==
LOC: LAB 08:07 → RESP 08:09
PROVIDERS: PCP Nurse Practitioner; Referring Provider Family Medicine; Visit Provider Family Medicine
DX: D72.819 Decreased white blood cell count, unspecified (principal); I10 Essential (primary) hypertension; R42 Dizziness and giddiness; Z86.2 Personal history of diseases of the blood and blood-forming organs and certain disorders involving the immune mechanism
CPT/HCPCS: 36415; 80053; 80061; 82043; 82570; 85025; 93005

== ENCOUNTER → 2023-01-30 06:57 | Outpatient (CLI) | payer OTHER, SELFPAY ==
--- NOTE | 2023-01-30 06:57 | DI.ECHO.S_ITS ---
[place]---------+ [facility] +---------+ : : [address] : [address] : : : : [id number] : : : : Phone: [phone]+ Echocardiogram Report + + :Name: SHAMAR THOMAS Study Date: 01/30/2023 Height: 67 in : :[facility] ReadingLocation: Weight: 177 lb : : Gender: Female BSA: 1.9 m2 : :: 1990 Age: 32 yrs BP: 133/101 mmHg: :Reason For Study: Hypertension : :Ordering Physician: ISMAEL, : :JABARI Performed By: Zhane Villaseñor : :Referring: JABARI GUEVARA : + + Interpretation Summary The ejection fraction is estimated to be 55-60%. Diastolic parameters suggest probable normal left ventricular diastolic function and normal filling pressures. The right ventricle is normal in size and function. There is trace aortic regurgitation. Pulmonary artery pressures cannot be estimated because of the lack of a measurable TR jet velocity. Procedure: A two-dimensional transthoracic echocardiogram with color flow and Doppler was performed. The study quality was technically adequate. There is no prior echocardiogram noted for this patient. The patient was in normal sinus rhythm during the exam. Left Ventricle: The left ventricle is normal in size. The ejection fraction is estimated to be 55-60%. Diastolic parameters suggest probable normal left ventricular diastolic function and normal filling pressures. Right Ventricle: The right ventricle is normal in size and function. Atria: The left atrial size is normal. Right atrial size is normal. There is no Doppler evidence for an interatrial shunt. Mitral Valve: The mitral valve leaflets appear mildly thickened, but open well. There is mild mitral annular calcification. There is no mitral valve stenosis. There is trace mitral regurgitation. Aortic Valve: The aortic valve is trileaflet. The aortic valve opens well. There is no aortic valve stenosis. There is trace aortic regurgitation. Tricuspid Valve: The tricuspid valve is normal. There is no tricuspid stenosis. There is trace tricuspid regurgitation. Pulmonary artery pressures cannot be estimated because of the lack of a measurable TR jet velocity. Pulmonic Valve: The pulmonic valve leaflets are thin and pliable; valve motion is normal. There is no pulmonic valvular stenosis. There is no pulmonic valvular regurgitation. Great Vessels: The aortic root is normal size. The ascending aorta is normal in size. The pulmonary artery is normal size. The IVC is of normal diameter and collapses greater than 50% with a sniff. This suggests a low right atrial pressure of 3 mm Hg. Pericardium/ Pleura There is no pericardial effusion. There is no pleural effusion. MMode/2D Measurements & Calculations LVIDd: 4.8 cm LVOT diam: 1.9 cm LVIDs: 3.1 cm Ao root diam: 3.0 cm FS: 35.4 % asc Aorta Diam: 3.0 cm IVSd: 0.90 cm LVPWd: 0.80 cm LV aguero. diameter/BSA (cm/m^2): 2.5 LV sys. diameter/BSA (cm/m^2): 1.6 LA A2 area: 15.7 cm2 RA long axis: 4.6 cm LA A4 area: 16.0 cm2 RA area: 12.3 cm2 LA length (vol): 5.2 cm RA vol: 27.9 ml LA vol: 40.8 ml RA : 14.6 ml/m2 LA vol index: 21.2 ml/m2 RVD1 (basal): 3.1 cm LVLs ap4: 6.5 cm LVLd ap2: 8.1 cm TAPSE_phl: 1.9 cm LVLs ap2: 6.6 cm Doppler Measurements & Calculations Ao V2 max: 121.3 cm/sec LVOT Max Graham: 112.7 cm/sec Ao V2 mean: 85.1 cm/sec LV V1 max P.1 mmHg Ao max P.0 mmHg LV V1 VTI: 22.0 cm Ao mean P.0 mmHg KENZIE(I,D): 2.3 cm2 Ao V2 VTI: 26.6 cm KENZIE(V,D): 2.6 cm2 sev ratio: 0.83 KENZIE indexed to BSA (cm^2/m^2): 1.2 MV E max graham: 86.4 cm/sec TR max graham: 213.5 cm/sec MV A max graham: 60.3 cm/sec TR max P.3 mmHg MV E/A: 1.4 PA V2 max: 92.7 cm/sec Med Peak E' Graham: 9.9 cm/sec PA V2 mean: 65.2 cm/sec E/E' med: 8.7 PA mean P.0 mmHg Lat Peak E' Graham: 18.8 cm/sec PA pr(Accel): 12.4 mmHg E/E' lat: 4.6 E/e' average: 6.6 MV dec time: 0.21 sec SV(LVOT): 62.3 ml AV VR_phl: 0.93 KENZIE(VTI)/BSA_phl: 1.2 Reading Physician:08:29 PM
== END ==
PROVIDERS: PCP Nurse Practitioner; Referring Provider Family Medicine; Visit Provider Family Medicine
DX: I34.81 Nonrheumatic mitral (valve) annulus calcification (principal); I10 Essential (primary) hypertension
CPT/HCPCS: 93306